=== PATIENT | male | born 1990 | race Caucasian/White ===

== ENCOUNTER 2017-11-04 00:12 | Emergency (ER) | payer OTHER ==
[~2017-11-04] VITALS: Ht 170.2 cm; Wt 59.3 kg
[2017-11-04 00:27] VITALS: Ht 170.2 cm; Wt 59.3 kg
--- NOTE | 2017-11-04 02:32 | ERD ---
ER Documentation Chief Complaint Chief Complaint pain left great toe, fell off a gate around 10 pm HPI This 26-year-old male presents to emergency department for evaluation of a left great toe injury. Patient reports he was jumping down from a fence and landed incorrectly flexing his toes forward with his full body weight, patient reports he has pain with ambulating, injury occurred today. Has not taken any medication for symptomatic relief. ROS All systems reviewed and are negative except as per history of present illness. Medications Home Meds Active Scripts Ibuprofen* (Motrin*) 600 Mg Tab, 600 MG PO Q6, #30 TAB Prov:DONOVAN CHAPPELL 11/04/17 Allergies Allergies: Coded Allergies: No Known Drug Allergies (Verified Allergy, Mild, 11/04/17) PMhx/Soc History of Surgery: Yes (RT TESTICLE RESECTION 05/2016) Anesthesia Reaction: No Hx Neurological Disorder: No Hx Respiratory Disorders: No Hx Cardiac Disorders: No Hx Psychiatric Problems: No Hx Miscellaneous Medical Probl: No Hx Alcohol Use: No Hx Substance Use: No Hx Tobacco Use: No Smoking Status: Never smoker Physical Exam Vitals Vital Signs Date Time Temp Pulse Resp B/P Pulse Ox O2 Delivery O2 Flow Rate FiO2 11/04/17 00:27 98.2 94 20 117/62 97 Vitals stable, triage notes reviewed Physical Exam Const: This well-nourished well-hydrated well-appearing 26-year-old male patient presents to emergency department in no acute distress Ext: Lower Extremity -left foot Skin: No laceration, ecchymosis, abrasion, or obvious bony deformity, nail is intact, no crack, or bleeding. Compartments: Soft Motor: Full active range of motion hip/knee/ankle/decreased range of motion with flexion and extension of toes on left foot. Patient reports that he is afraid to move them secondary to pain, pain is localized at IP Sensation: Intact to light touch FDWS/MF/LF/P surfaces. Bones: Nontender pelvis/knee/proximal tibia/ malleoli foot superior great toe tender at IP joint Joints: No effusion or laxity Pulses/Perfusion: 2+ DP, Capillary refill < 2 seconds Neur: Awake and alert Psych: Normal Mood and Affect Results 24 hrs Current Medications Medications (Trade) Dose Ordered Sig/Chandler Route PRN Reason Start Time Stop Time Status Last Admin Dose Admin Ibuprofen (Motrin) 600 mg ONCE ONCE PO 11/04/17 03:00 11/04/17 03:01 DC Ibuprofen (Motrin) 600 mg STK-MED ONCE .ROUTE 11/04/17 02:42 11/04/17 02:43 DC Procedures/MDM PROCEDURE: X-ray left foot CLINICAL INDICATION: Injury to the fifth toe of the left foot, with reference marker directed towards the distal phalanx. TECHNIQUE: 3 views left foot COMPARISON: None FINDINGS: No acute fracture or dislocation. Soft tissues unremarkable. IMPRESSION: No acute fracture. Electronically viewed and signed by Elvira Oliveira Physician on 11/04/2017 03:20 This 26-year-old male patient presents to emergency department for evaluation of left great toe injury. She reports he was jumping a fence, landed incorrectly flexing his toes forward. Patient reports pain, afraid to move his toes. Has taken no [id number] medication for symptomatic relief. Reports pain with ambulating. Emergency room course includes history and physical exam, there is no fifth metatarsal tenderness suggestive of a Lisfranc fracture. Plan, radiographic imaging, ibuprofen, radiologist's treatments no fracture, patient will be discharged home with ibuprofen, rest, use ice, follow- up with primary physician if symptoms fail to improve as anticipated. Patient is stable with no new complaints during ER course, clinically there is no current evidence to suggest Lisfranc fracture, great toe fracture, dislocation, subluxation, healed fracture. Metatarsal fracture or any other emergent condition appearing to require further evaluation or hospitalization. I feel the patient is stable for discharge at this time. I have discussed results, examination findings, the treatment plan with the patient and family present prior to discharge. Indications for emergent reevaluation, side effects of medication were also discussed. All questions were answered. Patient verbalizes understanding and agrees with plan of care. Departure Diagnosis: Primary Impression: Injury of great toe of left foot Encounter type: initial encounter Qualified Code: S99.922A - Injury of great toe of left foot, initial encounter Condition: Good Patient Instructions: Treating Metatarsalgia, What Is Metatarsalgia? Referrals: [facility] Additional Instructions: Thank you for for coming to [facility] for your care today. Please ask your nurse or provider if you have questions about your care today and do not leave until all your questions have been answered. Please use any medications given as directed and follow-up with your doctor (or the doctor you were referred to) in the next 2-3 days. If you do not have a primary care doctor you may follow up at the [facility] (listed below). You may also use motrin and tylenol as needed for fever and/or pain unless instructed otherwise by your provider or nurse. Indications for more urgent follow-up have been discussed, but you may return to the Emergency Department at ANY time for any worrisome or worsening symptoms. If you have abdominal pain, please know that no test or exam you received is perfect and you should follow up within 8 hours for continued pain. If you had any imaging studies today, such as an X-Ray or CT Scan, these studies will be reviewed later by a radiologist. You will be called if there are important findings that were not identified today, so make sure the contact information you provided at registration is correct. If you received any narcotic pain control medicine today, such as Vicodin, Morphine or Dilaudid, your coordination and judgment may be affected for a number of hours. Please do not drive or operate heavy machinery, and you may want someone to assist you at home. If you were given a prescription for narcotic medication, be aware that it is very addictive- use sparingly and only if necessary. DONOVAN CHAPPELL Nov 04, 2017 02:32
[2017-11-04] MEDS ORDERED: IBUP-1542 PO (02:35)
[2017-11-04] MEDS ORDERED: IBUPROFEN 600 MG TAB ONE (02:42)
[2017-11-04] MEDS ORDERED: IBUPROFEN 600 MG TAB PO ONE (03:00)
--- NOTE | 2017-11-04 03:20 | RADRPT ---
PROCEDURE: X-ray left foot CLINICAL INDICATION: Injury to the fifth toe of the left foot, with reference marker directed towar ds the distal phalanx. TECHNIQUE: 3 views left foot COMPARISON: None FINDINGS: No acute fracture or dislocation. Soft tissues unremarkable. IMPRESSION: No acute fracture. RPTAT: [facility] Physician Jaz Date Time Electronically viewed and signed by Elvira Oliveira Physician on 11/04/2017 03:20 RS/
[2017-11-04 03:55] VITALS: BP 105/59; PULSE 78; RESP 20; TEMP 98.2
== END 2017-11-04 06:41 | disposition home or self-care (01) ==
LOC: FTE 00:12
DX: S99.922A Unspecified injury of left foot, initial encounter (principal); W18.39XA Other fall on same level, initial encounter; Y92.9 Unspecified place or not applicable
CPT/HCPCS: 73630; Z7502; Z7610